=== PATIENT | male | born 1965 | race African-American/Black ===

== ENCOUNTER 2025-05-25 06:22 | Day surgery (SDC) | payer OTHER, SELFPAY | END 2025-05-25 15:11 | disposition home or self-care (01) | LOC: GI 06:22 | PROVIDERS: ATTENDING PHYSICIAN Student in an Organized Health Care Education/Training Program | DX: Z12.11 Encounter for screening for malignant neoplasm of colon (principal); Z86.0101 Personal history of adenomatous and serrated colon polyps | CPT/HCPCS: G0105 ==